=== PATIENT | male | born 1990 | race African-American/Black ===

== ENCOUNTER 2025-02-06 18:12 | Emergency (ER) | payer MEDICAID, OTHER ==
[~2025-02-06] VITALS: Ht 185.4 cm; Wt 104.0 kg
[2025-02-06 18:15] VITALS: O2SAT 96
[2025-02-06 21:10] LABS: BASOPHILS % 0.7 % (0.0-2.0); EOSINOPHILS % 2.2 % (0.0-5.0); HEMATOCRIT. 42.9 % (42.0-52.0); HEMOGLOBIN. 13.9 g/dL (14.0-18.0); LYMPHOCYTES % 29.6 % (20.0-50.0); MEAN PLATELET VOLUME 7.8 fl (7.4-10.4); MONOCYTES % 9.4 % (2.0-8.0); NEUTROPHILS % 58.1 % (40.0-76.0); PLATELET 369 x1000/uL (130-400); RED BLOOD CELL COUNT 5.47 mill/uL (4.7-6.1); RED CELL DISTRIBUTION WIDTH 13.8 % (11.6-14.6)
[2025-02-06 21:17] LABS: CREATININE 1.3 mg/dL (0.6-1.3)
[2025-02-06 21:18] LABS: ETHANOL BLOOD 22 mg/dL (<10); UREA NITROGEN BLOOD 10 mg/dL (9-23)
[2025-02-06 21:19] LABS: ASPARTATE AMINOTRANSFERASE 68 IU/L (<34)
[2025-02-06 21:20] LABS: BILIRUBIN TOTAL 0.4 mg/dL (0.1-1.0); PROTEIN TOTAL 7.8 g/dL (6.0-8.3)
[2025-02-06 21:34] LABS: CLARITY URINE CLEAR (CLEAR); COLOR URINE YELLOW (YELLOW); GLUCOSE URINE NEGATIVE (NEGATIVE); KETONES URINE TRACE (NEGATIVE); LEUKOCYTE ESTERASE URINE NEGATIVE (NEGATIVE); NITRITE URINE NEGATIVE (NEGATIVE); OCCULT BLOOD URINE NEGATIVE (NEGATIVE); PH URINE 5.5 (4.5-8.0); PROTEIN URINE NEGATIVE (NEGATIVE); SPECIFIC GRAVITY URINE 1.024 (1.005-1.030); UROBILINOGEN URINE 1.0 E.U./dL (0.2-1.0)
[2025-02-06 21:48] LABS: *AMPHETAMINES SCREEN URINE PRESUMPTIVE POSITIVE (NEGATIVE); *BARBITURATES SCREEN URINE NEGATIVE (NEGATIVE); *BENZODIAZEPINES SCREEN URINE PRESUMPTIVE POSITIVE (NEGATIVE)
[2025-02-06 21:49] LABS: TROPONIN I HIGH SENSITIVITY 6 ng/L (3.0-53)
[2025-02-06 21:49] LABS: *COCAINE SCREEN URINE NEGATIVE (NEGATIVE); CANNABINOID URINE SCREEN PRESUMPTIVE POSITIVE (NEGATIVE); ECSTASY MDMA SCREEN URINE CONF.TEST INDICATED (NEGATIVE); METHADONE URINE SCREEN NEGATIVE (NEGATIVE); OPIATES URINE SCREEN NEGATIVE (NEGATIVE); PHENCYCLIDINE URINE SCREEN NEGATIVE (NEGATIVE)
[2025-02-06] MEDS: IBUPROFEN 800MG TABLET PO ONE (21:57)
[2025-02-06] MEDS: SERTRALINE HCL 50MG TABLET PO SCH (21:58)
[2025-02-06] MEDS: ACETAMINOPHEN 500MG TABLET PO ONE (21:58)
[2025-02-06] MEDS: OLANZAPINE 5MG TABLET PO SCH (21:58)
[2025-02-07] MEDS ORDERED: SERT-422 MT (02:24)
[2025-02-07] MEDS ORDERED: OLAN5TAB74 MT (02:24)
[2025-02-07 03:26] VITALS: BP 97/57; PULSE 65; RESP 16; TEMP 37.1; O2SAT 100
== END 2025-02-07 03:27 | disposition home or self-care (01) ==
LOC: ER 18:12
DX: F20.9 Schizophrenia, unspecified (principal); F17.200 Nicotine dependence, unspecified, uncomplicated; F12.90 Cannabis use, unspecified, uncomplicated; F15.90 Other stimulant use, unspecified, uncomplicated; F31.9 Bipolar disorder, unspecified; Z20.822 Contact with and (suspected) exposure to COVID-19; Z79.899 Other long term (current) drug therapy
CPT/HCPCS: 80053; 80305; 81003; 80307; 80329; 80320; 83690; 83735; 85025; 84484; 36415; 93005; 99284; 87426; 71250; 74176; Z7610 ×2; G0480